=== PATIENT | male | born 1955 | race Caucasian/White ===

== ENCOUNTER 2018-03-30 09:06 | Outpatient (REF) | payer MEDICAID, SELFPAY ==
[2018-03-30 22:36] LABS: HGB 15.1 g/dL (13.5-17.5); Mean Corp. HGB Concentration 33.6 g/dL (32.0-36.0); Mean Corpuscular Hemoglobin 29.7 pg (27.0-33.0); Mean Corpuscular Volume 88.6 fL (80-95); Mean Platelet Volume 10.7 fL (8.0-11.0); Platelet Count 288 x1000/uL (130-400); RBC 5.08 m/cumm (4.50-6.00); RBC Distribution Width 13.8 % (11.8-14.1); White Blood Cell Count 8.98 k/cumm (4.4-10.8)
[2018-03-30 22:37] LABS: ALT 23 U/L (12-78); AST 15 U/L (15-37); Albumin 3.9 g/dL (3.4-5.0); Alkaline Phosphatase 55 U/L (46-116); BUN 26 mg/dL (7-18); Bilirubin, Total 0.6 mg/dL (0.2-1.0); CREATININE 1.61 mg/dL (0.70-1.30); Calcium 9.1 mg/dL (8.5-10.1); Chloride 101 mmol/L (98-107); Estimated GFR 43.85 (mL/min/1.73m2); Glucose 91 mg/dL (70-100); Potassium 4.5 mmol/L (3.5-5.1); Sodium 138 mmol/L (136-145); TSH (W/Ref FT4) 1.73 uIU/mL (0.358-3.74); Total Protein 7.3 g/dL (6.4-8.2)
[2018-03-30 23:20] LABS: Vitamin B12 169 pg/mL (193-986)
== END 2018-03-30 09:26 ==
LOC: NCHCN 09:06
PROVIDERS: PCP Internal Medicine; Visit Provider Nurse Practitioner Family
DX: E53.8 Deficiency of other specified B group vitamins (principal); Z13.29 Encounter for screening for other suspected endocrine disorder; Z13.0 Encounter for screening for diseases of the blood and blood-forming organs and certain disorders involving the immune mechanism; Z13.228 Encounter for screening for other metabolic disorders
CPT/HCPCS: 80053; 85027; 82607; 84443

== ENCOUNTER 2021-03-03 17:23 | Outpatient (REF) | payer MEDICARE, MEDICAID, SELFPAY ==
[2021-03-03 22:42] LABS: ALT 27 U/L (16-63); AST 15 U/L (15-37); Albumin 4.2 g/dL (3.4-5.0); Alkaline Phosphatase 57 U/L (46-116); Anion Gap 4.1 mmol/L (3-11); BUN 22 mg/dL (7-18); Bilirubin, Total 0.6 mg/dL (0.2-1.0); CO2 33.9 mmol/L (21.0-32.0); CREATININE 1.3 mg/dL (0.70-1.30); Calcium 9.1 mg/dL (8.5-10.1); Calculated LDL 99 mg/dL (<100); Chloride 102 mmol/L (98-107); Cholesterol 187 mg/dL (<200); Estimated GFR 55.58 (mL/min/1.73m2); Glucose 66 mg/dL (74-106); HDL Cholesterol 65 mg/dL (40-60); Hemoglobin A1C 5.3 % (<5.7); Potassium 4.6 mmol/L (3.5-5.1); Sodium 140 mmol/L (136-145); Total Protein 7.9 g/dL (6.4-8.2); Triglyceride 119 mg/dL (<150)
[2021-03-03 23:18] LABS: TSH (W/Ref FT4) 12.38 uIU/mL (0.36-3.74)
[2021-03-03 23:35] LABS: FREE T4 0.96 ng/dL (0.76-1.46)
== END 2021-03-03 17:24 | disposition home or self-care (01) ==
LOC: NCHCN 17:23
PROVIDERS: PCP Internal Medicine; Visit Provider Nurse Practitioner Family
DX: R53.83 Other fatigue (principal); E04.1 Nontoxic single thyroid nodule; Z00.00 Encounter for general adult medical examination without abnormal findings; Z13.220 Encounter for screening for lipoid disorders; Z13.1 Encounter for screening for diabetes mellitus
CPT/HCPCS: 80053; 80061; 83036; 84439; 84443

== ENCOUNTER 2021-04-16 19:43 | Outpatient (REF) | payer MEDICARE, MEDICAID, SELFPAY ==
[2021-04-16 18:31] LABS: TSH (W/Ref FT4) 6.54 uIU/mL (0.36-3.74)
[2021-04-16 18:50] LABS: FREE T4 1.01 ng/dL (0.76-1.46)
== END 2021-04-16 19:44 | disposition home or self-care (01) ==
LOC: NCHCN 19:43
PROVIDERS: PCP Internal Medicine; Visit Provider Nurse Practitioner Family
DX: E04.1 Nontoxic single thyroid nodule (principal); E03.9 Hypothyroidism, unspecified
CPT/HCPCS: 84439; 84443

== ENCOUNTER 2021-05-12 19:56 | Outpatient (REF) | payer MEDICARE, MEDICAID, SELFPAY ==
[2021-05-12 15:40] LABS: Abs Immature Grans 0.04 10^3/uL (0.0-0.06); Absolute Basophil Count 0.08 10^3/uL (0.0-0.2); Absolute Lymphocyte Count 1.26 10^3/uL (1.2-3.4); Absolute Neutrophil Count 8.25 10^3/uL (1.2-6.7); Basophils % 0.7; Eosinophils % 2.8; HCT 46.4 % (40.0-50.0); Immature Grans % 0.4; Lymphocytes % 11.7; MCH 28.8 pg (27.0-33.0); MCHC 32.3 % (32.0-36.0); MCV 89.1 fL (80-95); MPV 10.8 fL (8.0-11.0); Monocytes % 7.5; Neutrophils % 76.9; Nucleated RBC 0 %; Platelet Count 250 10^3/uL (130-400); RBC 5.21 10^6/uL (4.36-5.78); RDW 13.4 % (11.8-14.1); RDW-SD 43.8 fL; WBC 10.73 10^3/uL (4.4-10.8)
[2021-05-13 09:35] LABS: IgE 7 IU/mL (<158)
== END 2021-05-12 19:57 | disposition home or self-care (01) ==
LOC: LBN 19:56
PROVIDERS: PCP Internal Medicine; Visit Provider Student in an Organized Health Care Education/Training Program
DX: J44.9 Chronic obstructive pulmonary disease, unspecified (principal)
CPT/HCPCS: 82785; 85025

== ENCOUNTER 2021-07-20 21:03 | Outpatient (REF) | payer MEDICARE, MEDICAID, SELFPAY ==
[2021-07-20 22:50] LABS: TSH 8.44 uIU/mL (0.36-3.74)
== END 2021-07-20 21:04 | disposition home or self-care (01) ==
LOC: NCHCN 21:03
PROVIDERS: PCP Internal Medicine; Visit Provider Nurse Practitioner Family
DX: E03.9 Hypothyroidism, unspecified (principal)
CPT/HCPCS: 84443

== ENCOUNTER 2021-09-17 10:39 | Outpatient (REF) | payer MEDICARE, MEDICAID, SELFPAY ==
[2021-09-17 15:36] LABS: HCT 46.3 % (40.0-50.0); HGB 15.5 g/dL (13.5-17.5); MCH 29.8 pg (27.0-33.0); MCHC 33.5 % (32.0-36.0); MCV 89 fL (80-95); Platelet Count 273 10^3/uL (130-400); RBC 5.21 10^6/uL (4.36-5.78); RDW 13.4 % (11.8-14.1); RDW-SD 43.5 fL; WBC 9.41 10^3/uL (4.4-10.8)
[2021-09-17 16:11] LABS: Hemoglobin A1C 5.4 % (<5.7)
[2021-09-17 16:46] LABS: Calculated LDL 121 mg/dL (<100); Cholesterol 214 mg/dL (<200); HDL Cholesterol 76 mg/dL (40-60); TSH 3.15 uIU/mL (0.36-3.74); Triglyceride 88 mg/dL (<150); Vitamin B12 135 pg/mL (193-986)
== END 2021-09-17 10:40 | disposition home or self-care (01) ==
LOC: NCHCN 10:39
PROVIDERS: PCP Internal Medicine; Visit Provider Nurse Practitioner Family
DX: E03.9 Hypothyroidism, unspecified (principal); E53.8 Deficiency of other specified B group vitamins; E66.3 Overweight; R06.00 Dyspnea, unspecified; R79.89 Other specified abnormal findings of blood chemistry
CPT/HCPCS: 80061; 85027; 82607; 83036; 84443

== ENCOUNTER 2022-03-01 03:08 | Outpatient (CLI) | payer MEDICARE, MEDICAID, SELFPAY ==
[2022-03-01] MEDS: Albuterol HFA 18 GM 200 PUFF INH IH (14:26)
[2022-03-01] MEDS: Inhaler, Assist Device 1 EACH MC (14:27)
--- NOTE | 2022-03-01 16:24 | W.PFT ---
Date of service: 03/01/22 Time of Service: 13:01 Pulmonary Function Test Result Requesting Provider Lane Indications: ACOS Interpretation Spirometry: There is severe airflow limitation. There is a significant bronchodilator response. Lung Volumes: There is air trapping Diffusion Capacity: Diffusion is decreased Airway Pressure: Increased airways resistance. Impression Severe airflow limitation, significant bronchodilator response with air trapping and a decreased diffusion. This likely respresents Asthma-COPD Overlap. Note: Compared to 02/08/22 FEV1 and FVC are both significantly improved. Clinical Correlation therefore is recommended.
== END 2022-03-01 03:09 | disposition home or self-care (01) ==
LOC: RT 03:08
PROVIDERS: PCP Internal Medicine; Visit Provider Student in an Organized Health Care Education/Training Program
DX: J44.9 Chronic obstructive pulmonary disease, unspecified; J98.8 Other specified respiratory disorders; J98.4 Other disorders of lung; Z87.891 Personal history of nicotine dependence
CPT/HCPCS: 94060; 94726; 94729

== ENCOUNTER 2022-03-16 13:15 | Outpatient (REF) | payer MEDICARE, MEDICAID, SELFPAY ==
[2022-03-16 15:56] LABS: Anion Gap 3.1 mmol/L (3-11); BUN 26 mg/dL (7-18); CO2 34.9 mmol/L (21.0-32.0); CREATININE 1.3 mg/dL (0.70-1.30); Chloride 101 mmol/L (98-107); Estimated GFR 60.96 (mL/min/1.73m2); Glucose 82 mg/dL (74-106); Potassium 4.4 mmol/L (3.5-5.1); Sodium 139 mmol/L (136-145); TSH (W/Ref FT4) 4.98 uIU/mL (0.36-3.74)
[2022-03-16 15:59] LABS: Vitamin B12 > 2000 pg/mL (193-986)
[2022-03-16 16:41] LABS: FREE T4 1.08 ng/dL (0.76-1.46)
== END 2022-03-16 13:16 | disposition home or self-care (01) ==
LOC: NCHCN 13:15
PROVIDERS: PCP Internal Medicine; Visit Provider Nurse Practitioner Family
DX: E03.9 Hypothyroidism, unspecified (principal); E53.8 Deficiency of other specified B group vitamins; Z00.00 Encounter for general adult medical examination without abnormal findings
CPT/HCPCS: 80048; 82607; 84439; 84443

== ENCOUNTER 2022-04-29 21:09 | Outpatient (REF) | payer MEDICARE, MEDICAID, SELFPAY | END 2022-04-29 21:10 | disposition home or self-care (01) | LOC: NCHCN 21:09 | PROVIDERS: PCP Internal Medicine; Visit Provider Nurse Practitioner Family | DX: E06.3 Autoimmune thyroiditis (principal) | CPT/HCPCS: 84443 ==

== ENCOUNTER 2022-06-09 01:46 | Outpatient (CLI) | payer MEDICARE, MEDICAID, SELFPAY ==
--- NOTE | 2022-06-09 15:30 | DI.CTLCSR_ITS ---
Exam(s) CT CHEST LUNG CANCER SCREEN EXAM: CT CHEST LUNG CANCER SCREEN CLINICAL HISTORY: FORMER SMOKER Z87.891, SCREENING FOR LUNG CANCER TECHNIQUE: Imaging Protocol: Axial computed tomography images with coronal and sagittal reformatted images were created and reviewed COMPARISON: CT CT LDCT FOR LUNG CA SCREEN from 06/05/2021 FINDINGS: Tracheobronchial tree: Patent where visualized. Mediastinum and Dasha: No dominant adenopathy or fluid collection. Pulmonary parenchyma: No consolidation or dominant measurable mass. No architectural distortion. Lung Nodules: There is a stable 3 mm nodule in the left upper lobe. There is a stable 2 mm nodule in the left lower lobe. The triangular nodule associated with the right minor fissure is unchanged. T here are no new pulmonary nodules present. There is scarring or atelectasis in the right lung base w hich appears stable. Pleura: No effusion or pneumothorax. Heart: The heart is not dilated. There is mild coronary artery calcification. No significant pericar dial effusion is seen. Aorta: Thoracic aorta non-dilated.There is mild atherosclerosis. Upper abdomen: Unremarkable. Bones: Within normal limits. Soft Tissues: Unremarkable. IMPRESSION: Stable pulmonary nodules. Lung RADS Cat 2 - Benign Appearance / Behavior: Nodules with a very low likelihood of becoming a clin ically active cancer due to size or lack of growth Lung-RADS 1.0 CATEGORIES: Category 0 - Prior chest CT exam(s) being located for comparison. Category 1 - Annual screening in 12 months. No nodules or definitely benign nodules. Category 2 - Annual screening in 12 months. Benign appearance. Nodules with low likelihood of becomin g active cancer. Category 3 - 6-month follow-up. Probably benign. Short-term follow-up suggested. Nodules with low lik elihood of becoming active cancer. Category 4A - 3-month follow-up and CT/PET if >8 mm in size. Suspicious finding. Findings which requi re additional testing. Category 4B - Findings which require additional testing and tissue sampling. Category 4X - Category 3 or 4 nodules with additional features or imaging findings that increases the suspicion of malignancy. Modifier S- Potentially clinically significant findings (non lung cancer) RADIATION DOSE DELIVERED: Total DLP DATA REPOSITORY: All CT scans at this facility are submitted to the National Radiology Data Registry (NRDR) Dose Index Registry (DIR) with the [employer] (ACR). RADIATION OPTIMIZATION: All CT scans at this facility use at least one of these dose optimization te chniques: automated exposure control; mA and/or kV adjustment per patient size (includes targeted exa ms where dose is matched to clinical indication); or iterative reconstruction.
== END 2022-06-09 02:06 ==
PROVIDERS: PCP Internal Medicine; Visit Provider Nurse Practitioner Family
DX: Z12.2 Encounter for screening for malignant neoplasm of respiratory organs (principal); Z87.891 Personal history of nicotine dependence; R91.1 Solitary pulmonary nodule; J98.4 Other disorders of lung; R91.8 Other nonspecific abnormal finding of lung field
CPT/HCPCS: 71271

== ENCOUNTER 2022-06-14 18:55 | Outpatient (REF) | payer MEDICARE, MEDICAID, SELFPAY ==
--- OUTSIDE RECORDS SUMMARY | 2022-06-14 18:57 | XMS_ITS | CCD ---
Author Name Unknown Address [address] [place] [address] [phone] Organization Unknown Address [address] [place] [address] [id number] Care Team Providers Care Duplex Trimmer Name Role Phone ESVIN, SINTIA Attending Physician [phone] Vital Signs Unknown or Not Available. Allergies Allergy Code Allergy Type Reaction Status PCN (penicillin) 0 Drug allergy SWELLING (4 0 YRS AGO); TOLERATES AMPICILLIN OR AMOXICILLIN; Swelling Active LEVAQUIN 703255 Drug allergy Active Procedures Unknown or Not Available. History of Immunizations Unknown or Not Available. Problems Unknown or Not Available. Results Unknown or Not Available. Active Medications Medication Code Dose Units Frequency Route Modificatio n Start Date/Time Albuterol Sulfate 0.083% Inhalation Solution 156527 2.5 MILLIGRAMS EVERY OTHER DAY INHALATION 10/20/2018 11:19 Prescription Detail 2.5 MILLIGRAMS INHALATION EVERY OTHER DA Y oxyCODONE HCl 5MG Oral Tablet [id number] 5 MILLIGRAMS NEEDED EVERY 6 HOURS ORAL 10/20/2018 11:19 Prescription Detail TAKE 5 MILLIGRAMS ORAL NEEDED EVERY 6 HOURS Mapap 325MG Oral Tablet [id number] 650 MILLIGRAMS PRN Q6H ORAL 019 11:18 Prescription Detail TAKE 650 MILLIGRAMS ORAL PRN Q6H Stiolto Respimat 2.5MCG-2.5MCG /1Act Inhalation [place] [id number] 2 TRANSDERMAL PATCH DAILY INHALATION 10/20/2018 11:18 Prescription Detail 2 TRANSDERMAL PATCH INHALATION DAILY Symbicort 160/4.5 160MCG-4.5MCG /1 Actu Inhalation Aerosol Liquid [id number] 2 TRANSDERMAL PATCH TWICE A DAY INHALATION 10/20/2018 11:18 Prescription Detail 2 TRANSDERMAL PATCH INHALATION TWICE A D AY Medications Administered During Visit Unknown or Not Available. Encounters Encounter Diagnosis Diagnosis Code Start Date Screening for malignant neoplasm of respiratory tract [id number] 06/05/2021 Social History Smoking Status Code Start Date End Date Former smoker [id number] Patient Decision Aids Unknown or Not Available. Discharge Instructions You were admitted to [facility] on 06/05/2021 07:31 with a principal diagnosis of Encounter for screening for malignant neoplasm of respiratory organs You were discharged from [facility] on 06/05/2021 07:32 Should you have any questions prior to discharge, please contact a member of your healthcare team. If you have left the hospital and have any questions, please contact your primary care physician. Chief Complaint and Reason For Visit Chief Complaint Date of Onset FORMER SMOKER Function Status Unknown or Not Available. Plan of Care Unknown or Not Available. Referral/Transition of Care Unknown or Not Available.
[2022-06-14 21:46] LABS: TSH 2.95 uIU/mL (0.36-3.74)
== END 2022-06-14 18:56 | disposition home or self-care (01) ==
LOC: NCHCN 18:55
PROVIDERS: PCP Internal Medicine; Visit Provider Family Medicine
DX: E06.3 Autoimmune thyroiditis (principal)
CPT/HCPCS: 84443

== ENCOUNTER 2022-12-22 18:39 | Outpatient (REF) | payer OTHER, MEDICAID, SELFPAY ==
[2022-12-22 20:55] LABS: HCT 44.1 % (40.0-50.0); HGB 14.6 g/dL (13.5-17.5); MCH 28.7 pg (27.0-33.0); MCHC 33.1 % (32.0-36.0); MCV 87 fL (80-95); MPV 10.2 fL (8.0-11.0); Platelet Count 250 10^3/uL (130-400); RBC 5.08 10^6/uL (4.36-5.78); RDW 14.6 % (11.8-14.1); RDW-SD 46.7 fL; WBC 7.52 10^3/uL (4.4-10.8)
[2022-12-22 21:20] LABS: TSH 2.68 uIU/mL (0.36-3.74)
== END 2022-12-22 18:40 | disposition home or self-care (01) ==
LOC: NCHCN 18:39
PROVIDERS: PCP Internal Medicine; Visit Provider Family Medicine
DX: E06.3 Autoimmune thyroiditis (principal); N18.30 Chronic kidney disease, stage 3 unspecified; E66.3 Overweight
CPT/HCPCS: 85027; 84443

== ENCOUNTER → 2023-03-11 10:07 | Outpatient (BNVA) | payer OTHER, MEDICAID, SELFPAY | PROVIDERS: PCP Internal Medicine; Referring Provider Internal Medicine; Visit Provider Student in an Organized Health Care Education/Training Program | DX: J44.9 Chronic obstructive pulmonary disease, unspecified (principal); Z79.51 Long term (current) use of inhaled steroids; Z87.891 Personal history of nicotine dependence | CPT/HCPCS: 99214 ==

== ENCOUNTER → 2023-06-14 01:50 | Outpatient (CLI) | payer OTHER, MEDICAID, SELFPAY ==
--- NOTE | 2023-06-14 07:00 | DI.CTLCSR_ITS ---
Exam(s) CT CHEST LUNG CANCER SCREEN EXAM: CT CHEST LUNG CANCER SCREEN CLINICAL HISTORY: Screening for lung cancer,FORMER SMOKER, Z87.891 TECHNIQUE: Imaging Protocol: Axial computed tomography images with coronal and sagittal reformatted images were created and reviewed COMPARISON: CT CT LDCT FOR LUNG CA SCREEN from 06/05/[address] CHEST LUNG CANCER SCREEN from 06/09/2022 FINDINGS: Tracheobronchial tree: There is mild bronchial wall thickening predominantly in the lower lobes. No mucous plugging is seen. Pulmonary parenchyma: There is scarring or atelectasis in the lung bases. No focal consolidating inf iltrates are seen. No architectural distortion. Lung Nodules: There is a stable 3 mm nodule in the left upper lobe (series 3, image 191). The nodule in the left lower lobe measures 3 mm (series 3, image 454). This compares to 2 mm on the prior exam ination. There are no new pulmonary nodules. Mediastinum and Dasha: No dominant adenopathy or fluid collection. The esophagus is unremarkable. Thyroid gland: Unremarkable. Lymph nodes: Unremarkable. Pleura: No effusion or pneumothorax. Heart: The heart is not dilated. Mild coronary artery calcification is present. No pericardial effus ion. Aorta: Thoracic aorta non-dilated.Mild atherosclerotic calcification is noted. Upper abdomen: No acute abnormality. Soft Tissues: Unremarkable. Bones: Within normal limits. No acute abnormality. IMPRESSION: 1. Stable pulmonary nodules. 2. Mild bronchial wall thickening which can be seen with bronchitis or reactive airways disease. No focal consolidating infiltrates. Lung RADS Cat 2 - Benign Appearance / Behavior: Nodules with a very low likelihood of becoming a clin ically active cancer due to size or lack of growth Lung-RADS 1.0 CATEGORIES: Category 0 - Prior chest CT exam(s) being located for comparison. Category 1 - Annual screening in 12 months. No nodules or definitely benign nodules. Category 2 - Annual screening in 12 months. Benign appearance. Nodules with low likelihood of becomin g active cancer. Category 3 - 6-month follow-up. Probably benign. Short-term follow-up suggested. Nodules with low lik elihood of becoming active cancer. Category 4A - 3-month follow-up and CT/PET if >8 mm in size. Suspicious finding. Findings which requi re additional testing. Category 4B - Findings which require additional testing and tissue sampling. Suspicious finding. Category 4X - Category 3 or 4 nodules with additional features or imaging findings that increases the suspicion of malignancy. Modifier S- Potentially clinically significant finding. (Non lung cancer) RADIATION DOSE DELIVERED: Total DLP Total DLP DATA REPOSITORY: All CT scans at this facility are submitted to the National Radiology Data Registry (NRDR) Dose Index Registry (DIR) with the [employer] (ACR). RADIATION OPTIMIZATION: All CT scans at this facility use at least one of these dose optimization te chniques: automated exposure control; mA and/or kV adjustment per patient size (includes targeted exa ms where dose is matched to clinical indication); or iterative reconstruction.
== END ==
PROVIDERS: PCP Internal Medicine; Visit Provider Student in an Organized Health Care Education/Training Program
DX: Z87.891 Personal history of nicotine dependence (principal); Z12.2 Encounter for screening for malignant neoplasm of respiratory organs
CPT/HCPCS: 71271

== ENCOUNTER 2023-06-17 15:16 | Outpatient (REF) | payer OTHER, MEDICAID, SELFPAY ==
[2023-06-17 15:12] LABS: ALT 24 U/L (16-63); AST 21 U/L (15-37); Albumin 4.1 g/dL (3.4-5.0); Alkaline Phosphatase 75 U/L (46-116); Anion Gap 5.1 mmol/L (3-11); BUN 25 mg/dL (7-18); Bilirubin, Total 0.8 mg/dL (0.2-1.0); CO2 31.9 mmol/L (21.0-32.0); CREATININE 1.4 mg/dL (0.70-1.30); Calcium 9.4 mg/dL (8.5-10.1); Chloride 103 mmol/L (98-107); Estimated GFR 55.43 (mL/min/1.73m2); Glucose 112 mg/dL (74-106); Potassium 4.5 mmol/L (3.5-5.1); Sodium 140 mmol/L (136-145); TSH (W/Ref FT4) 7.24 uIU/mL (0.36-3.74); Total Protein 7.8 g/dL (6.4-8.2)
[2023-06-17 15:34] LABS: Vitamin D 25 Total 12.5 ng/mL (30-100)
[2023-06-17 15:55] LABS: FREE T4 0.89 ng/dL (0.76-1.46)
== END 2023-06-17 15:17 | disposition home or self-care (01) ==
LOC: NCHCN 15:16
PROVIDERS: PCP Internal Medicine; Referring Provider Family Medicine; Visit Provider Family Medicine
DX: E06.3 Autoimmune thyroiditis (principal); N18.30 Chronic kidney disease, stage 3 unspecified; E55.9 Vitamin D deficiency, unspecified
CPT/HCPCS: 80053; 82306; 84439; 84443

== ENCOUNTER → 2023-09-07 09:46 | Outpatient (BNVA) | payer OTHER, MEDICAID, SELFPAY | PROVIDERS: PCP Internal Medicine; Referring Provider Internal Medicine; Visit Provider Physician Assistant Surgical | DX: J44.9 Chronic obstructive pulmonary disease, unspecified (principal); Z87.891 Personal history of nicotine dependence | CPT/HCPCS: 99214 ==

== ENCOUNTER 2024-01-18 15:09 | Outpatient (REF) | payer OTHER, MEDICAID, SELFPAY ==
[2024-01-18 15:58] LABS: Calculated LDL 74 mg/dL (<100); Cholesterol 159 mg/dL (<200); HDL Cholesterol 67 mg/dL (40-60); TSH (W/Ref FT4) 4.64 uIU/mL (0.36-3.74); Triglyceride 92 mg/dL (<150); Vitamin B12 152 pg/mL (193-986)
[2024-01-18 16:26] LABS: FREE T4 1.43 ng/dL (0.76-1.46)
== END 2024-01-18 15:10 | disposition home or self-care (01) ==
LOC: NCHCN 15:09
PROVIDERS: PCP Family Medicine; Visit Provider Family Medicine
DX: E06.3 Autoimmune thyroiditis (principal)
CPT/HCPCS: 80061; 82607; 84439; 84443

== ENCOUNTER → 2024-03-07 09:30 | Outpatient (BNVA) | payer OTHER, MEDICAID, SELFPAY | PROVIDERS: PCP Family Medicine; Referring Provider Internal Medicine; Visit Provider Physician Assistant Surgical | DX: J44.9 Chronic obstructive pulmonary disease, unspecified (principal); Z87.891 Personal history of nicotine dependence | CPT/HCPCS: 99214 ==

== ENCOUNTER → 2024-09-04 07:55 | Outpatient (BNVA) | payer MEDICARE, MEDICAID, SELFPAY | PROVIDERS: PCP Family Medicine; Referring Provider Family Medicine; Visit Provider Physician Assistant Surgical | DX: J44.9 Chronic obstructive pulmonary disease, unspecified (principal); Z87.891 Personal history of nicotine dependence | CPT/HCPCS: 99214 ==

== ENCOUNTER 2024-10-01 15:23 | Outpatient (REF) | payer BC, MEDICAID, SELFPAY ==
[2024-10-01 16:06] LABS: ALT 33 U/L (16-63); AST 19 U/L (15-37); Albumin 3.9 g/dL (3.4-5.0); Alkaline Phosphatase 62 U/L (46-116); Anion Gap 3.7 mmol/L (3-11); BUN 24 mg/dL (7-18); Bilirubin, Total 1.2 mg/dL (0.2-1.0); CO2 37.3 mmol/L (21.0-32.0); CREATININE 1.4 mg/dL (0.70-1.30); Calcium 9.4 mg/dL (8.5-10.1); Chloride 100 mmol/L (98-107); Estimated GFR 55.09 (mL/min/1.73m2); Glucose 95 mg/dL (74-106); Potassium 5.1 mmol/L (3.5-5.1); Sodium 141 mmol/L (136-145); TSH 3.24 uIU/mL (0.36-3.74); Total Protein 7.2 g/dL (6.4-8.2)
== END 2024-10-01 15:24 | disposition home or self-care (01) ==
LOC: NCHCN 15:23
PROVIDERS: PCP Family Medicine; Visit Provider Family Medicine
DX: E03.9 Hypothyroidism, unspecified (principal); N18.31 Chronic kidney disease, stage 3a
CPT/HCPCS: 80053; 84443

== ENCOUNTER 2024-10-15 03:45 | Outpatient (CLI) | payer MEDICARE, MEDICAID, SELFPAY ==
[2024-10-15] MEDS: Inhaler, Assist Device 1 EACH MC (11:22)
[2024-10-15] MEDS: Levalbuterol HFA 15 GM INH 4 PUFF IH (11:24)
--- NOTE | 2024-10-15 12:44 | W.PFT ---
Date of service: 10/15/24 Time of Service: 09:57 Pulmonary Function Test Result Indications: COPD Interpretation Spirometry: There is very severe airflow limitation. No significant bronchodilator response. Lung Volumes: There is air trapping Diffusion Capacity: Reduced diffusion Airway Pressure: Increased airways resistance Impression Very severe airflow obstruction with air trapping and a reduced diffusion Clinical Correlation therefore is recommended.
== END 2024-10-15 03:46 | disposition home or self-care (01) ==
LOC: RT 03:45
PROVIDERS: PCP Family Medicine; Visit Provider Student in an Organized Health Care Education/Training Program
DX: J44.9 Chronic obstructive pulmonary disease, unspecified (principal)
CPT/HCPCS: 94060; 94726; 94729

== ENCOUNTER 2024-11-12 02:03 | Outpatient (RCR) | payer MEDICARE, MEDICAID, SELFPAY ==
[2024-11-12] MEDS: BENRALIZUMAB 30 MG/ML SC (09:52)
== END 2024-12-09 23:59 | disposition home or self-care (01) ==
LOC: INF 02:03
PROVIDERS: PCP Family Medicine; Visit Provider Physician Assistant Surgical
DX: J45.50 Severe persistent asthma, uncomplicated (principal)
CPT/HCPCS: 96372; J0517

== ENCOUNTER → 2024-11-27 13:46 | Outpatient (BNVA) | payer MEDICARE, MEDICAID, SELFPAY | PROVIDERS: PCP Family Medicine; Referring Provider Family Medicine; Visit Provider Physician Assistant Surgical | DX: J44.9 Chronic obstructive pulmonary disease, unspecified (principal); Z87.891 Personal history of nicotine dependence | CPT/HCPCS: 99214 ==

== ENCOUNTER 2025-01-07 03:38 | Outpatient (RCR) | payer MEDICARE, MEDICAID, SELFPAY ==
[2024-12-18] MEDS: BENRALIZUMAB 30 MG/ML SC (14:20)
[2025-01-07] MEDS: BENRALIZUMAB 30 MG/ML SC (09:03)
== END 2025-01-08 23:59 | disposition home or self-care (01) ==
LOC: INF 03:38
PROVIDERS: PCP Family Medicine; Visit Provider Physician Assistant Surgical
DX: J45.50 Severe persistent asthma, uncomplicated (principal)
CPT/HCPCS: 96372; J0517

== ENCOUNTER → 2025-02-25 14:12 | Outpatient (BNVA) | payer MEDICARE, MEDICAID, SELFPAY | PROVIDERS: PCP Family Medicine; Referring Provider Family Medicine; Visit Provider Internal Medicine Pulmonary Disease | DX: J44.9 Chronic obstructive pulmonary disease, unspecified (principal); R91.1 Solitary pulmonary nodule; R06.02 Shortness of breath; Z87.891 Personal history of nicotine dependence | CPT/HCPCS: 99214; 36415 ==

== ENCOUNTER 2025-02-25 18:35 | Outpatient (REF) | payer MEDICARE, MEDICAID, SELFPAY ==
[2025-02-25 15:20] LABS: BE 5 mmol/L (-2-3); HCO3 30 mmol/L (22-26)
== END 2025-02-25 18:36 | disposition home or self-care (01) ==
LOC: LBN 18:35
PROVIDERS: PCP Family Medicine; Visit Provider Internal Medicine Pulmonary Disease
DX: J44.9 Chronic obstructive pulmonary disease, unspecified (principal)
CPT/HCPCS: 82805

== ENCOUNTER 2025-03-04 03:19 | Outpatient (RCR) | payer MEDICARE, MEDICAID, SELFPAY ==
[2025-03-04] MEDS: BENRALIZUMAB 30 MG/ML SC (08:32)
== END 2025-03-10 23:59 | disposition home or self-care (01) ==
LOC: INF 03:19
PROVIDERS: PCP Family Medicine; Visit Provider Physician Assistant Surgical
DX: J45.50 Severe persistent asthma, uncomplicated (principal)
CPT/HCPCS: 96372; J0517